=== PATIENT | male | born 1985 | race Caucasian/White ===

== ENCOUNTER 2019-12-17 15:17 | Emergency (ER) | payer SELFPAY ==
[~2019-12-17] VITALS: Ht 167.6 cm; Wt 89.4 kg
[2019-12-17 15:25] VITALS: BP 125/68; Ht 167.6 cm; Wt 89.4 kg
== END 2019-12-17 17:50 | disposition home or self-care (01) ==
LOC: ED 15:17
DX: R21 Rash and other nonspecific skin eruption (principal)